=== PATIENT | female | born 1965 | race Caucasian/White ===

== ENCOUNTER 2021-01-31 20:49 | Emergency (ER) | payer OTHER, SELFPAY ==
--- NOTE | ~2021-01-31 | XR_ITS ---
EXAMINATION: XR hand LT min 3V EXAM DATE: 01/31/2021 22:23 INDICATION: Fall, deformity left fingers. Initial encounter. TECHNIQUE: Left hand frontal, lateral and oblique projections obtained and reviewed. There is no zoran or study for comparison. FINDINGS: There is complete posterior dislocation of the left 5th middle phalanx, with suspicion of v olar plate avulsion fracture. Acute closed posttraumatic comminuted fracture at the base of the left 4th proximal phalanx, with a t ransverse fracture at the proximal aspect of the shaft and another longitudinal fracture extending in to the metacarpophalangeal joint. There is significant distraction and some angulation. There is an acute closed posttraumatic fracture at the base of the left 3rd proximal phalanx into the MCP joint, with significant displacement of this phalanx. The metacarpal bones are unremarkable. IMPRESSION: 1. Left 5th middle phalangeal posterior dislocation, acute polar plate avulsion. 2. 4th and 3rd proximal phalangeal base intra-articular fractures. Reviewed, dictated and finalized at location G. IMPRESSION: 1. Left 5th middle phalangeal posterior dislocation, acute polar plate avulsio n. 2. 4th and 3rd proximal phalangeal base intra-articular fractures.
--- NOTE | ~2021-01-31 | XR_ITS ---
XR hand LT min 3V DATE: 02/01/2021 02:31 INDICATION: Post reduction examination TECHNIQUE: 3 views COMPARISON: 01/31/2021 left hand FINDINGS: There is a splint. There is reduction of the posterior dislocation at the proximal interphalangeal joint of the fifth di git. Intra-articular fractures of the bases of the proximal phalanges of the third and fourth digits are again noted, with anteromedial dislocation at the third metacarpophalangeal joint. There is the center greater medial displacement at the fracture of the proximal phalanx of the fourth digit. IMPRESSION: Reduction of posterior dislocation at fifth digit proximal interphalangeal joint Intra-articular fractures of the bases of the third and fourth proximal phalanges and anteromedial di slocation at the third metacarpophalangeal joint Reviewed, dictated and finalized at location A. IMPRESSION: Reduction of posterior dislocation at fifth digit proximal interpha langeal joint Intra-articular fractures of the bases of the third and fourth proximal phalang es and anteromedial dislocation at the third metacarpophalangeal joint
[2021-01-31 22:08] VITALS: BP 137/94; PULSE 87; RESP 19; TEMP 36.6; O2SAT 100
--- NOTE | 2021-01-31 22:18 | PC.NURSE ---
Pt. to XR
--- NOTE | 2021-01-31 23:25 | ED.UPPEXIN ---
HPI - Extremity Injury (Upper) General Chief Complaint: Extremity Injury, Upper Stated Complaint: L hand Injury Time Seen by Provider: 01/31/21 23:06 Source: patient Mode of arrival: ambulatory Limitations: no limitations History of Present Illness HPI narrative: This is a 55 year old female right hand dominant who presents for evaluation of left hand injury. Tonight she states she accidentally fell tripping over her dog. This caused her to break her fall with left outstretched hand. She reports pain and swelling to left 5th, 4th, and 3 fingers. Her little finger on her left hand she noticed was dislocated. She states she tried to reduce but she her a snap. She reports numbness to her finger tips. She states she needs a tetanus today. She denies LOC. Related Data Home Medications Medication Instructions Recorded Confirmed aspirin 81 mg tablet,delayed 81 mg PO DAILY 11/27/20 11/27/20 release Allergies Allergy/AdvReac Type Severity Reaction Status Date / Time Sulfa (Sulfonamide Allergy Unknown Swelling Verified 08/11/19 07:49 Antibiotics) of Lip/Tongue/Throat Review of Systems Review of Systems: All systems reviewed & are unremarkable except as noted in HPI and below PMFSH Past Medical History Medical History Hypertension Post-menopausal Family History Family History (Updated 08/11/19 @ 07:51 by Emerita Gallegos [facility]) Mother Hypertension Macular degeneration Prediabetes Father Hypertension Family history of diabetes mellitus Family history of leukemia Sibling Hypertension Social History Social History (Updated 08/11/19 @ 07:51 by Emerita Gallegos CMA) Smoking status: Never smoker Second hand tobacco smoke exposure: No Smoking end date: 09/20/82 Alcohol intake: current Substance use: never Gender identity (if verbalized by the patient): Female Exam Const: General: no acute distress and alert Orientation/consciousness: patient oriented x3 Resp: Effort & Inspection: normal respiratory effort Neuro: General: patient oriented x3, moves all extremities and CN's II-XI intact bilaterally Extrem: Other: left hand- 5th digit with palmar laceration at PIP joint with exposed bone; 4th digit small skin tear at PIP joint, no exposed bone, 3rd digit with laceration at PIP joint; patient has significant swelling and bruising at MCP joint. Patient unable to flex at DIP joints. reports numbness to 5th, 4th finger tip Psych: Mental Status: mental status grossly normal Affect: normal affect Course Reevaluation(s) Reevaluation #1: I have discussed with patient discharge plan. She understands she will need to follow up with hand Date: 02/01/21 Time: 02:36 Consultations Consultation #1: I spoke with Dr. Goddard about patient's injuries with open fractures and dislocations. She states patient can be reduces and washed out in ER at [place]. She states patient should be able to follow up as outpatient. She states this is not surgical emergency . If uncomfortable patient can be sent. I Spoke to ER physician who did not accepts patient to ER at [place]. Date: 02/01/21 Time: 00:03 Vital Signs Vital signs: Vital Signs Temperature 97.9 F 01/31/21 22:08 Pulse Rate 87 01/31/21 22:08 Respiratory Rate 19 01/31/21 22:08 Blood Pressure 137/94 H 01/31/21 22:08 Pulse Oximetry 100 01/31/21 22:08 Temperature 97.9 F 01/31/21 22:08 Pulse Rate 87 01/31/21 22:08 Respiratory Rate 19 01/31/21 22:08 Blood Pressure 137/94 H 01/31/21 22:08 Pulse Oximetry 100 01/31/21 22:08 Procedures Laceration Laceration 1: Date: 02/01/21 Time: 01:00 Site: hand (5th finger) Side (If applicable): left Size (cm): 1.5 Description: irregular Local Anesthetic: lidocaine 1% Amount of anesthesia used (mL): 2 Pre-repair: wound explore
[2021-01-31] MEDS: HYDROmorphone HCL INJ (*CRX) 1 MG/ML SYR 0.5 MG IV PUSH (23:56)
[2021-01-31] MEDS: ONDANSETRON INJ 4 MG/2 ML VIAL IV PUSH (23:56)
[2021-01-31] MEDS: ceFAZolin SODIUM 1 GM VIAL IV PUSH (23:56)
[2021-02-01] MEDS: LIDOCAINE HCL 1% LOCAL INJ 20 ML VIAL 5 ML INFILTRATE (01:37)
[2021-02-01] MEDS: HYDROcodone/acetaminophen (*CRX) 5-325 MG TABLET 1 TAB PO (02:25)
[2021-02-01] MEDS: TETANUS,DIPHTHERIA,AC PERTUSSIS ADULT (0.5 ML) BOOSTRIX IM (02:26)
[2021-02-01 02:59] VITALS: PULSE 75; RESP 16; O2SAT 98
== END 2021-02-01 03:00 | disposition home or self-care (01) ==
PROVIDERS: Emergency Provider General Practice; PCP Internal Medicine
DX: S62.613B Displaced fracture of proximal phalanx of left middle finger, initial encounter for open fracture (principal); S63.257A Unspecified dislocation of left little finger, initial encounter; S62.615A Displaced fracture of proximal phalanx of left ring finger, initial encounter for closed fracture; Z23 Encounter for immunization; I10 Essential (primary) hypertension; W01.0XXA Fall on same level from slipping, tripping and stumbling without subsequent striking against object, initial encounter
CPT/HCPCS: 12002; 26775; 73130; 90471; 90715; 96374; 96375; 99285; A9270; J0690; J1170; J2405

== ENCOUNTER → 2021-03-20 10:27 | Outpatient (CLI) | payer OTHER, SELFPAY ==
--- NOTE | ~2021-03-20 | MM_ITS ---
EXAMINATION: MM screening dustin BI w aileen HISTORY: Screening TECHNIQUE: Craniocaudal and mediolateral oblique 3-D tomosynthesis images were obtained and synthetic 2-D images were generated. CAD analysis was submitted and interpreted. COMPARISON: 03/01/2013 BREAST PARENCHYMAL COMPOSITION: The breasts are heterogenously dense, which may obscure small masses. FINDINGS: There are scattered bilateral breast masses which are obscured by fibroglandular tissue. Th ere are no suspicious calcifications or architectural distortion. IMPRESSION: 1. Scattered partially obscured bilateral breast masses. 2. Bilateral breast ultrasound recommended. BI-RADS Category 0: Incomplete: Needs additional imaging evaluation. Reviewed, dictated and finalized at location A.
== END ==
PROVIDERS: PCP Internal Medicine; Visit Provider Nurse Practitioner
DX: Z12.31 Encounter for screening mammogram for malignant neoplasm of breast (principal); R92.8 Other abnormal and inconclusive findings on diagnostic imaging of breast
CPT/HCPCS: 77063; 77067

== ENCOUNTER 2022-02-28 08:03 | Emergency (ER) | payer OTHER, SELFPAY ==
--- NOTE | 2022-02-28 08:04 | ED.EAR ---
HPI - Ear Problem General Chief complaint: Ear Stated complaint: Ear Pain Time Seen by Provider: 02/28/22 08:18 Source: patient and RN notes reviewed Mode of arrival: ambulatory Limitations: no limitations History of Present Illness HPI Narrative: 56-year-old female presents to the [facility] with complaints of left ear pain. Denies any shortness of breath, chest pain or abdominal pain. No nausea vomiting or diarrhea. Denies any fevers Denies swimming. No loss of hearing. Tenderness to palpation. Patient uses Q-tips Has a history of hypertension, did not take her medications today MD Complaint: ear pain Location: left ear Duration: constant Relieving factors: nothing Related Data Home Medications Medication Instructions Recorded Confirmed aspirin 81 mg tablet,delayed 81 mg PO DAILY 11/27/20 02/28/22 release (Adult Low Dose Aspirin) Allergies Allergy/AdvReac Type Severity Reaction Status Date / Time Sulfa (Sulfonamide Allergy Severe Swelling Verified 02/28/22 08:07 Antibiotics) of Lip/Tongue/Throat Review of Systems Review of Systems: All systems reviewed & are unremarkable except as noted in HPI and below Constitutional: Constitutional: Reports no additional constitutional complaints, Denies chills and Denies fever(s) Eyes: Eyes: Reports no additional eye complaints ENT: Reports as per HPI Comments: Left ear pain Cardiovascular: Cardiovascular: Reports no additional cardiovascular complaints Respiratory: Respiratory: Reports no additional respiratory complaints Gastrointestinal: Gastrointestinal: Reports no additional gastrointestinal complaints Musculoskeletal: Musculoskeletal: Reports no additional musculoskeletal complaints Integumentary/Breasts: Skin/Breast: Reports system reviewed and no additional complaints, except as docu Neurologic: Reports system reviewed and no additional complaints, except as documented Psychiatric: Psychiatric: Reports no additional psychiatric complaints Allergic/Immunologic: Allergic/Immunologic: Reports no additional allergic/immunologic complaints [facility] Past Medical History Medical History Abnormal mammogram Hypertension Post-menopausal Surgical History Surgical History H/O hand surgery Family History Family History Mother Hypertension Macular degeneration Prediabetes Father Hypertension Family history of diabetes mellitus Family history of leukemia Sibling Hypertension Social History Social History (Reviewed 02/28/22 @ 08:05 by CARMELO Fernández Smoking status: Never smoker Second hand tobacco smoke exposure: No Smoking end date: 09/20/82 Alcohol intake: current Alcohol use details: Pt drinks socially. Substance use: never Gender identity (if verbalized by the patient): Female Comments At the time of my signature, I reviewed and agree with the nursing past medical, surgical, social, and family history. There is no relevant family history pertinent to the patient complaint. Exam Const: General: healthy appearing, no acute distress and alert Nutritional Appearance: well nourished Orientation/consciousness: patient oriented x3 Limitations: no limitations HENMT: Head: normal to inspection Ears: external ears normal, TM's normal bilaterally, mastoids normal on the left, Abnormal EAC present erythema on the left, edema on the left and EAC tenderness on the left and hearing grossly not impaired General nose exam: Normal external nose present, Normal nares present and no nasal discharge noted Face and sinus: normal facial exam Mouth: Yes Normal oral and palatal mucosa present Throat: posterior oropharynx normal and uvula midline Eyes: General: appearance normal, both eyes and all related structures Conjunctivae: conjunctivae normal Pupils:
[2022-02-28 08:10] VITALS: BP 142/93; PULSE 89; RESP 16; TEMP 36.4; O2SAT 100
== END 2022-02-28 08:30 | disposition home or self-care (01) ==
PROVIDERS: Emergency Provider Nurse Practitioner; PCP Internal Medicine
DX: S00.412A Abrasion of left ear, initial encounter (principal); X58.XXXA Exposure to other specified factors, initial encounter; I10 Essential (primary) hypertension; Z79.82 Long term (current) use of aspirin
CPT/HCPCS: 99213; G0463

== ENCOUNTER → 2023-11-19 12:40 | Outpatient (CLI) | payer OTHER, SELFPAY ==
--- NOTE | ~2023-11-19 | US_ITS ---
EXAMINATION: US transvaginal DATE: 11/19/2023 12:56 INDICATION: Postmenopausal bleeding TECHNIQUE: Multiple endovaginal sonographic images of the pelvis were obtained. COMPARISON: None. FINDINGS: The uterus measures 6.6 x 3 x 3.5 cm. The endometrial complex measures 10 mm. The ovaries a re not visualized however no adnexal abnormality is seen. There is no free fluid in the pelvis. IMPRESSION: 1. Endometrial thickening which may be due to hyperplasia, polyp, or malignancy. Endometrial sampling is recommended. Reviewed, dictated and finalized at location F. [employer] IMPRESSION: 1. Endometrial thickening which may be due to hyperplasia, polyp, or malignancy . Endometrial sampling is recommended.
== END ==
PROVIDERS: PCP Nurse Practitioner; Visit Provider Obstetrics & Gynecology Gynecology
DX: N95.0 Postmenopausal bleeding (principal)
CPT/HCPCS: 76830

== ENCOUNTER 2024-01-03 04:41 | Day surgery (SDC) | payer OTHER, SELFPAY ==
[2023-12-27 15:19] VITALS: BMI 22.9
--- NOTE | 2023-12-27 15:25 | PC.NURSE ---
Report to the Outpatient Waiting Room, entrance under the green pavilion located off [facility], at time 1130 on date 01/03/24. Planned Procedure Time: 1330. Time changes happen often and if your time is changed the preop area will call you the afternoon before. - You and your visitor will be asked to self-screen and do not enter if you have any COVID symptoms. - A mask is optional within the hospital at this time. Patients may have clear liquids (water, carbonated beverages, clear teas, apple juice) until 3 hours prior to surgery with a maximum of 20 ounces. - No food from midnight until time of surgery FOLLOW INSTRUCTIONS FROM DR. PANDEY REGARDING CYTOTEC Take the following medications with a SIP of water the morning of surgery: NONE DO NOT STOP ANY OF YOUR OTHER PRESCRIPTION MEDICATIONS PRIOR TO SURGERY ?EXCEPT THE FOLLOWING Medications to discontinue per physician: N/A Date to take last dose: N/A Please no make-up, nail estonian, hairspray, perfume, deodorant, or body powder the day of surgery. No jewelry (including any body piercings) or valuables the day of surgery, leave them at home. Please take a shower or bath the night before, or the morning of, surgery with an antibacterial soap. Wear comfortable, loose fitting clothing. - Jewelry must be removed prior to entering the operating room. Rings and piercings that are not removed may be cut off. - The hospital will not accept responsibility for valuables. - Please leave all valuables, including medications, at home the day of surgery. If you are going home after surgery, a licensed driver material handler must drive you home. - NO public transportation without another adult if you receive anesthesia. - We recommend that an adult stay with you for 24 hours following discharge. - We also recommend that you do not drive, make important decision, drink alcoholic beverages, or take any drugs that were not prescribed by your health care provider for at least 24 hours after your discharge time. Follow any additional instructions given to you from your surgeon. If you or anyone in your household have experienced Covid symptoms in the past week, please notify your surgeon or the nurse liaison at the phone number below for possible testing. Telephone instructions given to PT - DAVID and asked if any additional questions and then verbalized understanding. Patient advised to call surgeon office or pre surgery nurse liaison [phone] if any additional questions.
--- NOTE | 2024-01-03 07:28 | WPDHPUPDATE1 ---
History and Physical Update Update Date/Time: 01/03/24 07:28 History and Physical has been reviewed, including an updated exam of the patient. There are NO changes in the patient's condition. Risks, benefits, and alternatives have been discussed and questions answered. Patient agrees to proceed with procedure.
--- NOTE | 2024-01-03 07:28 | PM.HPGS ---
History of Present Illness History of Present Illness Consent: Risks, benefits, and alternatives have been discussed and questions answered. Patient agrees to proceed with procedure. Chief complaint: post menopausal bleeding Narrative: Aubrie Farfan is a 58 year old female with postmenopausal bleeding and a thickened endometrium at 10mm. Attempt for office hysteroscopy was not successful due to severe stenosis of the cervix. It was recommended to undergo D&C hysteroscopy is in the hospital and patient was given Cytotec for 1 week prior to the procedure. Risks of infection, bleeding, perforation, and inability to enter the proper canal are reviewed. Possible pathology was also discussed. Patient voices understanding and agrees to proceed. Review of Systems Review of Systems: not repeated day of surgery; patient states no changes in status [facility] Past Medical History Medical History (Updated 01/03/24 @ 07:32 by Brandi Hebert MD) Factor 5 Leiden mutation, heterozygous Hypertension (normal spontaneous vaginal delivery) x2 Surgical History Surgical History H/O hand surgery Family History Family History Mother Hypertension Macular degeneration Prediabetes Father Hypertension Family history of diabetes mellitus Family history of leukemia Sibling Hypertension Social History Social History (Updated 02/19/23 @ 09:46 by Leora Giraldo CMA) Smoking status: Never smoker Second hand tobacco smoke exposure: No Smoking end date: 09/20/82 Alcohol intake: current Drinks per week: 3 Alcohol use details: Pt drinks socially. Substance use: never Substance use type: does not use Lack of Transportation: No Lack of Food: Never True Current Housing: I Have Housing Concerned About Future Housing: No Difficulty Paying Gas/Electric Bills: No Difficulty Paying for Meds: No Currently Unemployed: No Education: Bachelor's Degree Difficulty w/ Childcare or Family Care: No Living arrangements: with family Gender identity (if verbalized by the patient): Female Spiritual care concerns: No Meds Home Medications and Allergies Home Medications Medication Instructions Recorded Confirmed Type aspirin 81 mg tablet,delayed 81 mg PO DAILY 11/27/20 12/27/23 History release (Adult Low Dose Aspirin) lisinopril 2.5 mg tablet 2.5 mg PO DAILY #90 tabs 09/15/23 12/27/23 Rx misoprostol 200 mcg tablet 1,000 mcg PO HS 12/27/23 12/27/23 History Allergies Allergy/AdvReac Type Severity Reaction Status Date / Time Sulfa (Sulfonamide Allergy Severe Swelling Verified 12/27/23 15:18 Antibiotics) of Lip/Tongue/Throat Exam Const: General: healthy appearing and alert Orientation/consciousness: patient oriented x3 Resp: Effort & Inspection: normal respiratory effort : External Female Exam: normal external appearance Speculum Exam - Vagina: normal appearance of the vagina and normal vaginal discharge Speculum Exam - Cervix: Other cervical findings present ( cervix has a pinpoint external indentation and severe stenosis) Bimanual exam- vagina & uterus: uterine size normal and consistency normal Bimanual Exam- Adnexa, other: normal adnexae and No adnexal tenderness Neuro: General: patient oriented x3 Assessment and Plan Assessment and plan (1) Post-menopausal bleeding: Code(s): N95.0 - Postmenopausal bleeding Status: Acute Assessment and Plan: plan to proceed with D&C hysteroscopy
[2024-01-03 11:30] VITALS: BP 147/77; PULSE 89; RESP 18; TEMP 36.7; O2SAT 100
[2024-01-03] MEDS: LACTATED RINGERS 1,000 ML 30 ML IV CONT (12:01)
[2024-01-03] MEDS: ACETAMINOPHEN 500 MG TABLET 1000 MG PO (12:04)
--- NOTE | 2024-01-03 12:55 | WPDANESEPPF ---
Anes - Initial Pre Proc Eval Procedure: Operation Date: 01/03/24 13:30 Proposed Procedures p Hysteroscopy, Dilation and Curettage - Brandi Hebert MD Date/Time: 01/03/24 12:55 Surgeon: Brandi Hebert MD Pre Op Diagnosis: post menopausal bleeding Patient Data Age: 58 Gender: F Height: 1.66 m Weight: 63 kg Last Vital Signs Temp 98.1 F 01/03/24 11:30 Pulse 89 01/03/24 11:30 Resp 18 01/03/24 11:30 BP 147/77 H 01/03/24 11:30 Pulse Ox 100 01/03/24 11:30 O2 Del Method Room Air 01/03/24 11:30 Allergies Allergy/AdvReac Type Severity Reaction Status Date / Time Sulfa (Sulfonamide Allergy Severe Swelling Verified 01/03/24 11:48 Antibiotics) of Lip/Tongue/Throat Home Medications Medication Instructions Recorded Confirmed Type aspirin 81 mg tablet,delayed 81 mg PO DAILY 11/27/20 01/03/24 History release (Adult Low Dose Aspirin) lisinopril 2.5 mg tablet 2.5 mg PO DAILY #90 tabs 09/15/23 01/03/24 Rx misoprostol 200 mcg tablet 1,000 mcg PO HS 12/27/23 01/03/24 History Patient hx anesthesia problems: none Family hx anesthesia problems: none Results Review: All pre-operative results and documents have been reviewed as part of the pre-operative evaluation. PMFSH Past Medical History Medical History Factor 5 Leiden mutation, heterozygous Hypertension (normal spontaneous vaginal delivery) x2 Surgical History Surgical History H/O hand surgery Family History Family History Mother Hypertension Macular degeneration Prediabetes Father Hypertension Family history of diabetes mellitus Family history of leukemia Sibling Hypertension Social History Social History (Updated 02/19/23 @ 09:46 by Leora Giraldo CMA) Smoking status: Never smoker Second hand tobacco smoke exposure: No Smoking end date: 09/20/82 Alcohol intake: current Drinks per week: 3 Alcohol use details: Pt drinks socially. Substance use: never Substance use type: does not use Lack of Transportation: No Lack of Food: Never True Current Housing: I Have Housing Concerned About Future Housing: No Difficulty Paying Gas/Electric Bills: No Difficulty Paying for Meds: No Currently Unemployed: No Education: Bachelor's Degree Difficulty w/ Childcare or Family Care: No Living arrangements: with family Gender identity (if verbalized by the patient): Female Spiritual care concerns: No Anes - Eval Final PreProcedure Day of Procedure 01/03/24 12:55 Patient weight: normal Heart: regular rate and rhythm Lungs: clear to auscultation Airway: Mallampati scale class 1 Neurological: alert and oriented Last oral intake: >/= 8 hours ASA classification: II Emergent: no Anesthetic plan: proceed Anesthesia type and monitoring: general GIVS and standard monitoring Results Review: All pre-operative results and documents have been reviewed as part of the pre-operative evaluation. Informed Consent: The patient's anesthetic plan and its attendant risks and benefits were discussed with the patient/family/POA. Questions were solicited and answers provided to the satisfaction of the patient/family/POA.
[2024-01-03 13:30] VITALS: BP 137/62; PULSE 83; RESP 12; O2SAT 97
--- NOTE | 2024-01-03 13:30 | P.OP_ITS ---
Procedure Note - Detailed Date of Procedure 01/03/24 Pre-op Diagnosis post menopausal bleeding Post-op Diagnosis Same Procedure Performed D&C hysteroscopy with resection of large polyp Surgeon Brandi Hebert MD Anesthesia MAC Findings The external and internal cervical os are very stenotic. The uterus sounds to 7cm. There is a vascular polyp arising from the right mid fundus filling the entire cavity and the majority of the cervix. The remainder of the endometrium is atrophic. Description of Procedure The patient is taken to the operating room and placed under anesthesia in the dorsal lithotomy position. She was prepped and draped in the usual sterile fashion. [place] speculum was placed in the vagina and the cervix grasped on the anterior lip with a tenaculum. The os Finders are not able to enter pass 2mm of the external os. The sound is until able to pass. The 11 blade scalpel was used to close gross the opening. The os Finders were then with difficulty able to pass. The uterus is sounded to 7cm. The diagnostic hysteroscope was placed and with the above-stated findings the Aveeta Flex resection device is placed. Under direct visualization the polyp was removed in its entirety. The remainder of the uterus is then able to be visualized. The endometrium appears grossly atrophic with no other lesions identified. The hysteroscope was then removed. The OO sharp curette is used to curette the endometrium until a good uterine cry was noted in all areas. Minimal material was obtained consistent with the visual appearance. All instruments were then removed. Sponge, needle, and instrument counts are correct per the OR staff. The patient was awakened from anesthesia and taken to recovery in stable condition. Estimated Blood Loss 5 Drains No Packing No Pathology Yes ( Endometrial shavings and curettings) Complications No immediate complications Condition Stable Disposition PACU
[2024-01-03 14:00] VITALS: BP 134/60; PULSE 80; RESP 14
== END 2024-01-03 14:15 | disposition home or self-care (01) ==
PROVIDERS: PCP Nurse Practitioner; Visit Provider Obstetrics & Gynecology Gynecology
PROC: 0U5B8ZZ Destruction of Endometrium, Via Natural or Artificial Opening Endoscopic (ICD-10-PCS; CPT 58563; principal; 2024-01-03 13:30)
DX: N95.0 Postmenopausal bleeding (principal); N84.0 Polyp of corpus uteri; I10 Essential (primary) hypertension; D68.59 Other primary thrombophilia; Z98.890 Other specified postprocedural states; Z79.82 Long term (current) use of aspirin
CPT/HCPCS: 58558; 88305; A9270; J2001; J2250; J2405; J2704; J3010; J7120